=== PATIENT | male | born 1940 | race Caucasian/White ===

== ENCOUNTER → 2016-11-30 | Outpatient (CLI) | payer BC ==
[~2016-11-30] MED LIST: ALPR-411 PO; ALT10 PO; AMOX500C3 PO; ASPEC325 PO; ASPEC81 PO; CLOP1TAB15 PO; CORAL CALCIUM PO; EZET10TA41 PO; FISHOIL PO; HYDC25 PO; METO50TA7 PO; NTRGSL/4 SL; POTA10CA28 PO; flaxseed PO
--- NOTE | 2016-12-04 11:35 | CODING QUERY MEDICAL NECESSITY ---
CQSUPPORTING DIAGNOSIS NEEDED A supporting diagnosis is required for the test/procedure performed on this patient in order for us to be reimbursed by the patient's insurance. Please provide a supporting diagnosis for the following test/procedure listed below next to the test name along with your signature. *If there is no additional diagnosis for this patient that would support the following test/procedure please document that below next to the test/procedure. Test(s)/Procedure(s) that require a supporting diagnosis: [place] 11/30/16 BONE MINERAL DENSITY STUDY Provider Signature: Date: Thank you Leny Enriquez [facility] Information Management Once completed, please kindly fax back to [phone] For questions please call [phone]
== END | disposition home or self-care (01) ==
LOC: C.MAMM 13:47
PROVIDERS: ATTEND Family Medicine
DX: Z13.820 Encounter for screening for osteoporosis (principal); M85.851 Other specified disorders of bone density and structure, right thigh

== ENCOUNTER → 2018-01-11 | Outpatient (CLI) | payer BC ==
[~2018-01-11] MED LIST changes: -METO50TA7 PO; +METO50TA8 PO
== END | disposition home or self-care (01) ==
LOC: C.LABSPEC 17:19
PROVIDERS: ATTEND Podiatrist Primary Podiatric Medicine
DX: B35.1 Tinea unguium (principal)